=== PATIENT | male | born 1935 | race Caucasian/White ===

== ENCOUNTER 2018-11-01 13:06 | Emergency (ER) | payer OTHER ==
[~2018-11-01] VITALS: Ht 180.3 cm; Wt 90.7 kg
[2018-11-01] MEDS ORDERED: NORVASC5 MG PO (13:32)
[2018-11-01] MEDS ORDERED: LIPITOR10 MG PO (13:32)
[2018-11-01] MEDS ORDERED: PROPAFENONE 15150 MG PO (13:32)
[2018-11-01] MEDS ORDERED: VITAMINC500 PO (13:33)
[2018-11-01] MEDS ORDERED: ASPIR 8181 M1 PO (13:33)
[2018-11-01] MEDS ORDERED: CHLORTHALIDONE25 MG PO (13:33)
[2018-11-01] MEDS ORDERED: MUCINEX600 MG PO (13:36)
[2018-11-01] MEDS ORDERED: CENTRUM SILVER1 EACH PO (13:36)
[2018-11-01] MEDS ORDERED: CITRUCEL500 MG PO (13:37)
[2018-11-01] MEDS ORDERED: CLARITIN10 MG PO (13:37)
[2018-11-01 14:00] LABS: HEMATOCRIT 45.2 % (42.0-52.0); HEMOGLOBIN 15.4 gm/dL (14.0-18.0); MCH 31.6 pg (26.0-34.0); MCHC 34.1 g/dL (28.0-37.0); MCV 92.6 fL (80.0-100.0); MPV 8.8 fl. (7.2-11.1); NUCLEATED RBCS 0 /100WBC; PLATELET COUNT* 249 thou/uL (150-400); RBC 4.88 mil/uL (4.50-6.00); RDW-CV 12.9 % (10.5-14.5); WBC 14.6 thou/uL (4.0-11.0)
[2018-11-01 14:06] LABS: ANION GAP 12 mmol/L (7-16); BUN 25 mg/dL (7-18); CALCIUM 9.6 mg/dL (8.5-10.1); CHLORIDE 101 mmol/L (98-107); CO2 26 mmol/L (21-32); CREATININE 1.3 mg/dL (0.6-1.3); GLUCOSE 151 mg/dL (70-99); POTASSIUM 4.2 mmol/L (3.5-5.1); SODIUM 139 mmol/L (136-145)
[2018-11-01 14:15] LABS: ALBUMIN 4.6 g/dL (3.4-5.0); ALKALINE PHOSPHATASE 72 U/L (46-116); LIPASE 104 U/L (73-393); SGOT 16 U/L (15-37); SGPT 29 U/L (30-65); TOTAL BILIRUBIN 1.3 mg/dL (<0.1-1.0); TOTAL PROTEIN 7.9 g/dL (6.4-8.2); TROPONIN-I LEVEL <0.06 ng/mL (<0.06)
[2018-11-01 14:20] LABS: ABSOLUTE NEUTROPHILS 12.6 thou/uL (1.6-8.1); ANISOCYTOSIS 1+; PLATELET ESTIMATE ADEQUATE; POIKILOCYTOSIS 1+
[2018-11-01] MEDS ORDERED: MIRALAX17 GM PO ×2 (15:02→15:32)
[2018-11-01] MEDS ORDERED: BISACODYL SUPP10 MG RECTAL ×2 (15:02→15:32)
[2018-11-01 15:51] VITALS: BP 149/85
--- NOTE | 2018-11-03 12:36 | EKG ---
[place] [address] ELECTROCARDIOGRAM REPORT Name: NIKI LONDONO Room: [facility]#: [id number] Admission: 11/01/18 Attend Phys: Discharge: 11/01/18 Date of : 37 Report #: [id number] THIS REPORT FOR: //name// [facility] ED Test Date: 2018-11-01 Test Time: 13:44:34 Pat Name: NIKI WRIGHTFFER Department: Room: Gender: M [employer]: Xi HARGROVE : 1935 Requested By: Diane Castelan Order Number: [id number] MD: Hi Whatley Measurements Intervals [place] Rate: 78 P: 0 WI: 178 QRS: 15 QRSD: 102 T: -44 QT: 368 QTc: 420 Interpretive Statements Sinus rhythm Nonspecific repol abnormality, diffuse leads No previous ECG available for comparison Electronically Signed On 11-03-2018 12:36:21 CDT by Hi Whatley [email or web address] <ELECTRONICALLY SIGNED> By: Hi Whatley MD, [facility] 11/03/18 1236 1344 1344 Hi Whatley MD, FACC /EPI
== END 2018-11-01 15:52 | disposition home or self-care (01) ==
LOC: M.ERS 13:06
PROVIDERS: Physician Assistant
DX: K56.41 Fecal impaction (principal); K57.30 Diverticulosis of large intestine without perforation or abscess without bleeding; I10 Essential (primary) hypertension

== ENCOUNTER 2021-02-27 08:42 | Emergency (ER) | payer OTHER ==
[~2021-02-27] VITALS: Ht 177.8 cm; Wt 88.9 kg
[~2021-02-27 08:42] MED LIST: ASPIR 8181 M1 PO; BISACODYL SUPP10 MG RECTAL; CENTRUM SILVER1 EACH PO; CHLORTHALIDONE25 MG PO; CITRUCEL500 MG PO; CLARITIN10 MG PO; LIPITOR10 MG PO; MIRALAX17 GM PO; MUCINEX600 MG PO; NORVASC5 MG PO; PROPAFENONE 15150 MG PO; VITAMINC500 PO
[2021-02-27 10:04] VITALS: BP 170/79
== END 2021-02-27 10:05 | disposition home or self-care (01) ==
LOC: M.ERS 08:42
DX: S90.852A Superficial foreign body, left foot, initial encounter (principal); I10 Essential (primary) hypertension; Z79.899 Other long term (current) drug therapy; W25.XXXA Contact with sharp glass, initial encounter; Y93.89 Activity, other specified; Y92.89 Other specified places as the place of occurrence of the external cause; Y99.8 Other external cause status